=== PATIENT | male | born 2000 | race Caucasian/White ===

== ENCOUNTER 2018-02-10 14:36 | Emergency (ER) | payer BC ==
[2018-02-10 15:20] VITALS: BP 140/63
--- NOTE | 2018-02-10 16:14 | UC ---
Lower Extremity/Ankle HPI - HPI Summary HPI Summary: Inversion injury right ankle yesterday playing rugby. Able to walk on it , but it doesn't feel stable side to side. H/O fracture in the right ankle 4 or 5 years ago. - History of Current Complaint Chief Complaint: UCLowerExtremity Stated Complaint: RT ANKLE INJURY Time Seen by Provider: 02/10/18 16:08 Hx Obtained From: Patient Onset/Duration: Sudden Onset, Lasting Days - 1, Still Present Severity Initially: Moderate Severity Currently: Moderate Pain Intensity: 4 Aggravating Factor(s): Standing, Ambulation Alleviating Factor(s): Elevation, Ice Able to Bear Weight: Yes - Allergies/Home Medications Allergies/Adverse Reactions: Allergies Allergy/AdvReac Type Severity Reaction Status Date / Time No Known Allergies Allergy Verified 02/10/18 15:14 Home Medications: Home Medications Ibuprofen TAB* [Advil TAB*] 400 mg PO Q6H PRN 02/10/18 [History Confirmed ] PMH/Surg Hx/FS Hx/Imm Hx Previously Healthy: Yes - Surgical History Surgical History: None - Social History Occupation: Student Lives: Dormitory/Roommates Alcohol Use: None Substance Use Type: None Smoking Status (MU): Never Smoked Tobacco Review of Systems Musculoskeletal: Arthralgia - right ankle Is Patient Immunocompromised?: No All Other Systems Reviewed And Are Negative: Yes Physical Exam Triage Information Reviewed: Yes Appearance: Well-Appearing, No Pain Distress - at rest, Well-Nourished Vital Signs: Initial Vital Signs Temp 98.3 F 02/10/18 15:15 Pulse 60 02/10/18 15:15 Resp 14 02/10/18 15:15 BP 140/63 02/10/18 15:15 Pulse Ox 100 02/10/18 15:15 Vital Signs Reviewed: Yes Eyes: Positive: Conjunctiva Inflamed Neck exam: Normal Respiratory Exam: Normal Cardiovascular Exam: Normal Musculoskeletal: Positive: ROM Limited @ - right ankle with pain on inversion., Other: - Lateral right ankle swelling with tenderness over the lateral malleolus. No ligament tenderness. No foot tenderness. Neurological Exam: Normal Psychological Exam: Normal Skin Exam: Normal Diagnostics - Radiology No standard instances Xray Interpretation: No Acute Changes Radiology Interpretation Completed By: ED Physician, Radiologist Lower Extremity Course/Dx - Differential Dx/Diagnosis Differential Diagnosis/HQI/PQRI: Contusion, Fracture (Closed), Sprain, Strain Provider Diagnoses: Acute sprain right ankle. Discharge - Sign-Out/Discharge Documenting (check all that apply): Patient Departure All imaging exams completed and their final reports reviewed: Yes - Discharge Plan Condition: Stable Disposition: HOME Patient Education Materials: Ankle Sprain (ED), Ankle Stirrup Splint (ED) Referrals: No Primary Care Phys,NOPCP [Primary Care Provider] - Dhruv Ruelas MD [Medical Doctor] - 1 Day (For ankle evaluation for restrictions for sports.) - Billing Disposition and Condition Condition: STABLE Disposition: Home
--- NOTE | 2018-02-10 16:37 | RAD ---
HISTORY: rolled ankle. Lateral malleolus tenderness COMPARISONS: None VIEWS: 3 , Frontal, lateral, and oblique views of the right ankle FINDINGS: BONE DENSITY: Normal. BONES: There is no displaced fracture. JOINTS: There is no arthropathy. ALIGNMENT: There is no dislocation. SOFT TISSUES: Unremarkable. OTHER FINDINGS: None. IMPRESSION: NO ACUTE OSSEOUS INJURY. IF SYMPTOMS PERSIST, RECOMMEND REPEAT IMAGING.
== END 2018-02-10 16:55 | disposition home or self-care (01) ==
LOC: UCCORT 14:36
DX: S93.401A Sprain of unspecified ligament of right ankle, initial encounter (principal); X50.0XXA Overexertion from strenuous movement or load, initial encounter; Y93.63 Activity, rugby; Y92.9 Unspecified place or not applicable
CPT/HCPCS: 99202; G0463

== ENCOUNTER 2019-03-19 15:34 | Emergency (ER) | payer BC ==
[2019-03-19] MEDS ORDERED: NS 0.9% 1000 ML** 1,000 ML IV ONE (15:57)
[2019-03-19] MEDS ORDERED: Ketorolac INJ* 30 MG/ML 1 ML VIAL IM ONE (15:57)
[2019-03-19] MEDS ORDERED: Ondansetron INJ* 2 MG/ML VIAL IV ONE (15:57)
[2019-03-19] MEDS ORDERED: Ketorolac INJ* 30 MG/ML 1 ML VIAL IV PUSH ONE (16:19)
--- NOTE | 2019-03-19 17:01 | UC ---
Nausea/Vomiting/Diarrhea HPI - HPI Summary HPI Summary: 18-year-old male presents with complaints of 2 days of nausea and vomiting. States he has had up to 4-5 episodes of vomiting a day. Last episode was approximately one hour prior to arrival. Reports low-grade fever. States over the past day he has been developing a headache and neck stiffness. States today he felt like he had some mild chest tightness. Has been taking ibuprofen with some improvement. Denies visual disturbances, photophobia, URI symptoms, Palpitations, lightheadedness, dizziness, abdominal pain, diarrhea, dysuria, frequency, or urgency. - History of Current Complaint Chief Complaint: UCGeneralIllness Stated Complaint: VOMITING, HEADACHE, CHEST PRESSURE Time Seen by Provider: 03/19/19 15:50 Hx Obtained From: Patient Pain Intensity: 6 - Allergies/Home Medications Allergies/Adverse Reactions: Allergies Allergy/AdvReac Type Severity Reaction Status Date / Time No Known Allergies Allergy Verified 03/19/19 15:45 PMH/Surg Hx/FS Hx/Imm Hx Previously Healthy: Yes - Denies significant PMH - Surgical History Surgical History: None - Family History Known Family History: Positive: Non-Contributory - Social History Occupation: Student Lives: Dormitory/Roommates Alcohol Use: Occasionally Substance Use Type: None Smoking Status (MU): Never Smoked Tobacco Review of Systems All Other Systems Reviewed And Are Negative: Yes Constitutional: Positive: Fever, Fatigue Skin: Negative: Rash Eyes: Negative: Blurred Vision, Diplopia, Photophobia ENT: Negative: Sore Throat, Ear Ache, Nasal Discharge, Sinus Congestion Respiratory: Negative: Shortness Of Breath, Cough Cardiovascular: Negative: Palpitations Gastrointestinal: Positive: Vomiting, Nausea. Negative: Abdominal Pain, Diarrhea Genitourinary: Negative: Dysuria, Hematuria, Frequency, Urgency Musculoskeletal: Positive: Negative Neurological: Positive: Negative Is Patient Immunocompromised?: No Physical Exam - Summary Physical Exam Summary: GENERAL APPEARANCE: Well developed, well nourished, alert and cooperative, and appears to be in no acute distress. EYES: Conjunctiva clear. No drainage. PERRL, EOM intact. Vision is grossly intact. EARS: External auditory canals and tympanic membranes clear, hearing grossly intact. NOSE: No nasal discharge. THROAT: Pharynx normal No tonsilar inflammation, swelling, exudate, or lesions. Uvula midline. NECK: Neck supple, non-tender without lymphadenopathy. Full ROM. No nuchal rigidity. CARDIAC: Normal S1 and S2. No S3, S4 or murmurs. Rhythm is regular. There is no peripheral edema, cyanosis or pallor. Extremities are warm and well perfused. Capillary refill is less than 2 seconds. Peripheral pulses intact. LUNGS: Clear to auscultation without rales, rhonchi, wheezing or diminished breath sounds. ABDOMEN: Positive bowel sounds. Soft, nondistended, nontender. No guarding or rebound. No masses or hepatosplenomegally. No CVA tenderness. MUSKULOSKELETAL: ROM intact to all extremities. No joint erythema or tenderness. Normal muscular development. Normal gait. NEUROLOGICAL: CN II-XII intact. Strength and sensation symmetric and intact throughout. SKIN: Skin normal color, texture and turgor with no lesions or eruptions. Triage Information Reviewed: Yes Vital Signs: Initial Vital Signs Temp 100.8 F 03/19/19 15:38 Pulse 101 03/19/19 15:38 Resp 15 03/19/19 15:38 BP 116/59 03/19/19 15:38 Pulse Ox 100 03/19/19 15:38 Vital Signs Reviewed: Yes Naus/Vom/Diarrhea Course/Dx - Course Course Of Treatment: 18-year-old male presents with complaints of 2 days of nausea and vomiting. States he has had up to 4-5 episodes of vomiting a day. Last episode was approximately one hour prior to arrival. Reports low-grade fever. States over the past day he has been developing a headache and neck stiffness. States today he felt like he had some mild chest tightness. Has been taking ibuprofen with some improvement. Denies visual disturbances, photophobia, URI symptoms, Palpitations, lightheadedness, dizziness, abdominal pain, diarrhea, dysuria, frequency, or urgency. Patient had a mildly elevated temperature of 100.8 F. remainder of vital signs are stable. His exam was overall unremarkable. Patient received 1 L of IV fluids, ondansetron IV 8 mg, and ketorolac 30 mg IV during the course of his stay with improvement in his symptoms. We'll discharge patient home with ondansetron 4 mg by mouth every 6 hours as needed for nausea or vomiting and encourage him to continue with oral rehydration. He is to return here or follow-up in [facility] in 3 days if symptoms are not improving. Anticipatory guidance and warning symptoms were reviewed with the patient. Verbalizes understanding and agrees with plan of care. - Differential Dx/Diagnosis Differential Diagnoses - Male: Appendicitis, Gastroenteritis (Viral), Gastroenteritis (Bacterial), Vomiting, Colitis, Other - Menigitis Provider Diagnosis: Nausea & vomiting Condition At Discharge: Stable Discharge ED - Sign-Out/Discharge Documenting (check all that apply): Patient Departure All imaging exams completed and their final reports reviewed: No Studies - Discharge Plan Condition: Stable Disposition: HOME Prescriptions: Ondansetron ODT TAB* [Zofran 4 MG Odt TAB*] 4 mg PO Q6H PRN #8 tab.odt PRN Reason: Nausea/Vomiting Patient Education Materials: Acute Nausea and Vomiting (ED) Referrals: No Primary Care Phys,NOPCP [Primary Care Provider] - Additional Instructions: Take ondansetron 4 mg 1 tablet every 6 hours as needed for nausea or vomiting. He received a dose of this medication in the clinic at around 4:00 PM. Drink plenty of fluids. Try to drink small amounts frequently to avoid filling your stomach to full which can cause vomiting. If you are still having vomiting, start with a clear liquid diet including soup broths, Jello, popsicles, and gabino-izzy with carbonation stirred out of it. You may then advance to a bland diet including saltine crackers, toast, bananas , rice, and applesauce. Then return to a normal diet as tolerated. Continue taking acetaminophen (Tylenol) or ibuprofen (Advil, Motrin) according directions as needed for pain or fever. Follow up here or with the [facility] in 3-5 days if symptoms persist. Seek immediate medical attention in the emergency room if you have a persistent fever greater than 100.5 F despite taking acetaminophen or ibuprofen, have severe abdominal pain, persistent vomiting, blood in your vomit or stool, or any worsening of symptoms. - Billing Disposition and Condition Condition: STABLE Disposition: Home
[2019-03-19] MEDS ORDERED: Acetaminophen TAB* 325 MG PO ONE (17:06)
[2019-03-19 17:07] VITALS: BP 118/79
== END 2019-03-19 17:20 | disposition home or self-care (01) ==
LOC: UCCORT 15:34
DX: R11.2 Nausea with vomiting, unspecified (principal)
CPT/HCPCS: 96361; 96374; 96375; 99212; A9270-GY; G0463; J1885; J2405